=== PATIENT | female | born 1945 | race Caucasian/White ===

== ENCOUNTER 2016-07-06 10:34 | Emergency (ER) | payer MEDICARE ==
[2016-07-06 11:16] LABS: BILIRUBIN NEGATIVE (NEGATIVE); BLOOD NEGATIVE Ery/uL (NEGATIVE); CLARITY CLEAR (CLEAR); COLOR YELLOW (YELLOW); GLUCOSE (U) NORMAL (NORMAL); KETONE (U) NEGATIVE (NEGATIVE); LEUKOCYTES NEGATIVE Leu/uL (NEGATIVE); NITRITE NEGATIVE (NEGATIVE); PROTEIN NEGATIVE (NEGATIVE); UROBILINOGEN 0.2 mg/dL (0.2-1.0); pH 5.5 (5.0-9.0)
[2016-07-06 11:48] LABS: BASOPHIL 0.7 % (0-2); EOSINOPHIL 0.7 % (0-7); HCT 35.2 % (37.0-47.0); HGB 11.5 g/dl (12.5-16.0); LYMPHOCYTE 20.8 % (15-48); MCH 32.2 pg (25.0-31.0); MCHC 32.7 g/dL (32.0-36.0); MCV 98.6 fL (78.0-100.0); MONOCYTE 4.3 % (0-12); MPV 11.3 fL (6.0-9.5); NEUTROPHIL 73.5 % (41-80); PLT 155 K/uL (150-400); RBC 3.57 M/uL (4.20-5.40); RDW 11.3 % (11.5-14.0); WBC 4.4 K/uL (4.0-10.5)
[2016-07-06 12:08] LABS: BILIRUBIN - TOTAL 0.5 mg/dL (0.1-1.0); CREATININE 1.2 mg/dL (0.5-1.0); GLOBULIN (CALCULATION) 3.1 g/dL (2.2-4.2); POTASSIUM 4.6 mmol/L (3.5-5.1); TOTAL PROTEIN 7.1 g/dL (6.4-8.3)
== END 2016-07-06 14:01 | disposition home or self-care (01) ==
LOC: FER 10:34
PROVIDERS: Emergency Medicine
DX: M54.5 Low back pain (principal); I10 Essential (primary) hypertension; Z90.49 Acquired absence of other specified parts of digestive tract; Z90.89 Acquired absence of other organs; Z88.8 Allergy status to other drugs, medicaments and biological substances
CPT/HCPCS: 36415; 74000; 80053; 81003; 82150; 83690; 85025; 85651; 87088; 99284

== ENCOUNTER 2016-07-07 12:58 | Inpatient (IN) | payer MEDICARE ==
[2016-07-07 14:13] LABS: BASOPHIL 0.5 % (0-2); EOSINOPHIL 0 % (0-7); HCT 36.8 % (37.0-47.0); HGB 12.2 g/dl (12.5-16.0); LYMPHOCYTE 15.9 % (15-48); MCH 32.4 pg (25.0-31.0); MCHC 33.2 g/dL (32.0-36.0); MCV 97.6 fL (78.0-100.0); MONOCYTE 3.6 % (0-12); MPV 11.5 fL (6.0-9.5); PLT 191 K/uL (150-400); RBC 3.77 M/uL (4.20-5.40); RDW 11.3 % (11.5-14.0); WBC 6.1 K/uL (4.0-10.5)
[2016-07-07 14:23] LABS: POTASSIUM 4.1 mmol/L (3.5-5.1)
[2016-07-07 23:54] LABS: INR 1.13 (0.9-1.2); PROTHROMBIN TIME 14.1 SECONDS (11.7-14.0)
[2016-07-08 00:06] LABS: CKMB 2.06 ng/mL (0.97-4.94); TROPONIN T < 0.010 ng/mL
[2016-07-08 00:16] LABS: TSH (THYROID STIM HORMONE) 1.06 uIU/mL (0.270-4.200)
[2016-07-08 00:22] LABS: FOLIC ACID (SERUM) > 20.0 ng/mL (5.6-45.8)
[2016-07-08 06:04] LABS: BASOPHIL 0.5 % (0-2); EOSINOPHIL 0.5 % (0-7); HCT 30.5 % (37.0-47.0); HGB 9.9 g/dl (12.5-16.0); LYMPHOCYTE 24.7 % (15-48); MCH 32.1 pg (25.0-31.0); MCHC 32.5 g/dL (32.0-36.0); MONOCYTE 9.7 % (0-12); MPV 11.6 fL (6.0-9.5); NEUTROPHIL 64.6 % (41-80); PLT 166 K/uL (150-400); RBC 3.08 M/uL (4.20-5.40); RDW 11.3 % (11.5-14.0); WBC 5.5 K/uL (4.0-10.5)
[2016-07-08 06:22] LABS: CREATININE 1.1 mg/dL (0.5-1.0); POTASSIUM 4.1 mmol/L (3.5-5.1); TROPONIN T < 0.010 ng/mL
[2016-07-09 05:11] LABS: ALBUMIN 3.7 g/dL (3.4-4.8); BILIRUBIN - TOTAL 0.5 mg/dL (0.1-1.0); CREATININE 1.4 mg/dL (0.5-1.0); GLOBULIN (CALCULATION) 2.6 g/dL (2.2-4.2); POTASSIUM 4.2 mmol/L (3.5-5.1); TOTAL PROTEIN 6.3 g/dL (6.4-8.3)
[2016-07-09 08:11] LABS: BASOPHIL NO PRINT 1.1 % (0-2); EOSINOPHIL NO PRINT 2.1 % (0-7); HCT 32.5 % (37.0-47.0); HGB 10.2 g/dL (12.5-16.0); LYMPHOCYTE NO PRINT 32.8 % (15-48); MCH NO PRINT 31.3 pg (25.0-31.0); MCHC NO PRINT 31.4 g/dL (32.0-36.0); MCV NO PRINT 99.7 fL (78.0-100.0); MONOCYTE NO PRINT 12.3 % (0-12); NEUTROPHIL NO PRINT 51.7 % (41-80); PLT NO PRINT 164 K/uL (150-400); RBC NO PRINT 3.26 M/uL (4.20-5.40); RDW NO PRINT 11.5 % (11.5-14.0); WBC NO PRINT 4.7 K/uL (4.0-10.5)
[2016-07-09] MEDS ORDERED: COZAAR100 MG PO (10:37)
[2016-07-09] MEDS ORDERED: BACLOFEN 10MG T10 MG PO (10:38)
[2016-07-09] MEDS ORDERED: TURMERIC500 MG PO (10:39)
[2016-07-09] MEDS ORDERED: GLUCOSAMINE1000 MG PO (10:39)
[2016-07-09] MEDS ORDERED: NORCO 5-325 TA1 EACH PO (10:40)
[2016-07-09] MEDS ORDERED: NORVASC5 MG PO (10:40)
[2016-07-09] MEDS ORDERED: LASIX20 MG PO (10:41)
[2016-07-09] MEDS ORDERED: LIDOCAINE 5% P1 EACH TOP (10:41)
== END 2016-07-09 11:30 | disposition home or self-care (01) | DRG 291 ==
LOC: FER 12:58 → FICU 19:15
PROVIDERS: Internal Medicine; Internal Medicine Cardiovascular Disease; ADMIT Internal Medicine
DX: I13.0 Hypertensive heart and chronic kidney disease with heart failure and stage 1 through stage 4 chronic kidney disease, or unspecified chronic kidney disease (principal); J96.01 Acute respiratory failure with hypoxia; Z68.42 Body mass index [BMI] 45.0-49.9, adult; I27.2 Other secondary pulmonary hypertension; E66.01 Morbid (severe) obesity due to excess calories; J81.0 Acute pulmonary edema; I50.31 Acute diastolic (congestive) heart failure; I50.30 Unspecified diastolic (congestive) heart failure; I11.0 Hypertensive heart disease with heart failure; M51.36 Other intervertebral disc degeneration, lumbar region; I34.0 Nonrheumatic mitral (valve) insufficiency; D64.9 Anemia, unspecified; Z86.14 Personal history of Methicillin resistant Staphylococcus aureus infection; N18.9 Chronic kidney disease, unspecified
CPT/HCPCS: 36415; 36600; 71010; 72100; 74000; 78579; 78580; 80048; 80053; 81003; 82150; 82550; 82553; 82607; 82728; 82746; 82803; 83540; 83690; 83880; 84443; 84484; 85014; 85018; 85025; 85379; 85610; 85651; 87088; 93005; 93880; 94010; 99284; A9539; J1885; J1940; J2270; J2405; Q9967

== ENCOUNTER 2020-08-29 14:50 | Day surgery (SDCO) | payer MEDICARE ==
[~2020-08-29] VITALS: Ht 162.6 cm; Wt 114.5 kg
[~2020-08-29 14:50] MED LIST: BACLOFEN 10MG T10 MG PO; COZAAR100 MG PO; GLUCOSAMINE1000 MG PO; LASIX20 MG PO; LIDOCAINE 5% P1 EACH TOP; NORCO 5-325 TA1 EACH PO; NORVASC5 MG PO; TURMERIC500 MG PO
[2020-08-29 17:58] LABS: BASOPHIL 0.2 % (0-2); EOSINOPHIL 0.1 % (0-7); HCT 39.7 % (37.0-47.0); HGB 13.6 g/dl (12.5-16.0); MCHC 34.3 g/dL (32.0-36.0); MCV 96.4 fL (78.0-100.0); MONOCYTE 6.5 % (0-12); MPV 10.2 fL (6.0-9.5); NEUTROPHIL 81.7 % (41-80); NRBC 0; PLT 209 K/uL (150-400); RBC 4.12 M/uL (4.20-5.40); RDW 12.2 % (11.5-14.0); WBC 11.7 K/uL (4.0-10.5)
[2020-08-29 18:10] LABS: ALBUMIN 3.4 g/dL (3.4-5.0); BILIRUBIN - TOTAL 1.3 mg/dL (0.2-1.0); BUN/CREAT RATIO (CALC) 18.6 RATIO; CREATININE 1.88 mg/dL (0.51-0.95); GLOBULIN (CALCULATION) 3.6 g/dL; POTASSIUM 4.2 mmol/L (3.5-5.1)
[2020-08-29 19:04] LABS: INR 1.44 (0.9-1.2); PROTHROMBIN TIME 16.8 SECONDS (11.8-13.4); PTT 28.9 SECONDS (24.4-34.7)
[2020-08-30 00:06] LABS: CKMB 2.4 ng/mL (0.0-3.6)
[2020-08-30] MEDS ORDERED: PRAVACHOL20 MG PO (01:02)
[2020-08-30] MEDS ORDERED: ELIQUIS5 MG PO (01:03)
[2020-08-30] MEDS ORDERED: CO Q-10100 MG PO (01:03)
[2020-08-30] MEDS ORDERED: CARDIZEM CD120 MG PO (01:04)
[2020-08-30] MEDS ORDERED: TOPROL XL 50 MG50 MG PO (01:05)
[2020-08-30] MEDS ORDERED: LASIX20 MG PO (01:05)
[2020-08-30] MEDS ORDERED: VITAMIN D (01:07)
[2020-08-30] MEDS ORDERED: B 12 IM (01:08)
[2020-08-30 04:58] LABS: BILIRUBIN 1+ mg/dL (NEGATIVE); BLOOD NEGATIVE Ery/uL (NEGATIVE); CLARITY CLEAR (CLEAR); COLOR YELLOW (YELLOW); GLUCOSE (U) NORMAL (NORMAL); LEUKOCYTES NEGATIVE Leu/uL (NEGATIVE); NITRITE NEGATIVE (NEGATIVE); PROTEIN TRACE (LOW) mg/dL (NEGATIVE); SPECIFIC GRAVITY 1.025 (1.001-1.030); UROBILINOGEN 0.2 mg/dL (0.2-1.0); pH 5.5 (5.0-9.0)
[2020-08-30 06:40] LABS: BASOPHIL 0.4 % (0-2); EOSINOPHIL 0.3 % (0-7); HCT 34.9 % (37.0-47.0); HGB 11.9 g/dl (12.5-16.0); LYMPHOCYTE 16.6 % (15-48); MCH 33.1 pg (25.0-31.0); MCHC 34.1 g/dL (32.0-36.0); MCV 96.9 fL (78.0-100.0); MONOCYTE 8.7 % (0-12); MPV 10.5 fL (6.0-9.5); NEUTROPHIL 73.7 % (41-80); NRBC 0; PLT 187 K/uL (150-400); RDW 12.1 % (11.5-14.0); WBC 7.3 K/uL (4.0-10.5)
[2020-08-30 06:57] LABS: ALBUMIN 2.9 g/dL (3.4-5.0); BILIRUBIN - TOTAL 1.2 mg/dL (0.2-1.0); BUN/CREAT RATIO (CALC) 20.9 RATIO; CREATININE 1.72 mg/dL (0.51-0.95); GLOBULIN (CALCULATION) 2.6 g/dL; POTASSIUM 4.3 mmol/L (3.5-5.1); TOTAL PROTEIN 5.5 g/dL (6.4-8.2)
[2020-08-30 07:13] LABS: CKMB 4.2 ng/mL (0.0-3.6)
[2020-08-30 11:50] LABS: URINE CREATININE 173.12 mg/dL (29.00-226.00); URINE TOTAL PROTEIN-RANDOM 43.5 mg/dL (<11.9)
--- NOTE | 2020-08-30 17:58 | NUR ---
08/30/20 Ms. Branham lives at home with his spouse. She requested a rolling walker. [employer] has delivered the walker to the patient room.
[2020-08-31 04:04] LABS: BASOPHIL 0.4 % (0-2); EOSINOPHIL 0.7 % (0-7); HCT 30.7 % (37.0-47.0); HGB 10.3 g/dl (12.5-16.0); LYMPHOCYTE 23.2 % (15-48); MCH 32.4 pg (25.0-31.0); MCHC 33.6 g/dL (32.0-36.0); MCV 96.5 fL (78.0-100.0); MONOCYTE 8.9 % (0-12); MPV 10.4 fL (6.0-9.5); NEUTROPHIL 66.4 % (41-80); NRBC 0; PLT 160 K/uL (150-400); RBC 3.18 M/uL (4.20-5.40); RDW 12.1 % (11.5-14.0); WBC 5.5 K/uL (4.0-10.5)
[2020-08-31 04:24] LABS: BUN/CREAT RATIO (CALC) 20.1 RATIO; CREATININE 1.74 mg/dL (0.51-0.95); POTASSIUM 3.5 mmol/L (3.5-5.1)
[2020-08-31] MEDS ORDERED: LASIX40 MG PO (11:07)
--- NOTE | 2020-08-31 14:04 | NUR ---
DSG CHANGE DONE TO RIGHT WRIST AND HAND AREA AND TO LEFT LEG.
== END 2020-08-31 14:20 | disposition home or self-care (01) ==
LOC: FER 14:50 → FMS 20:49
PROVIDERS: Emergency Medicine; Nurse Practitioner; ADMIT Internal Medicine
DX: S81.812A Laceration without foreign body, left lower leg, initial encounter (principal); Z79.01 Long term (current) use of anticoagulants; I27.20 Pulmonary hypertension, unspecified; W01.0XXA Fall on same level from slipping, tripping and stumbling without subsequent striking against object, initial encounter; Z88.8 Allergy status to other drugs, medicaments and biological substances; I13.10 Hypertensive heart and chronic kidney disease without heart failure, with stage 1 through stage 4 chronic kidney disease, or unspecified chronic kidney disease; I25.10 Atherosclerotic heart disease of native coronary artery without angina pectoris; I48.91 Unspecified atrial fibrillation; Z95.0 Presence of cardiac pacemaker; Z20.822 Contact with and (suspected) exposure to COVID-19; I21.4 Non-ST elevation (NSTEMI) myocardial infarction; I34.0 Nonrheumatic mitral (valve) insufficiency; N18.30 Chronic kidney disease, stage 3 unspecified; I45.10 Unspecified right bundle-branch block; Z90.49 Acquired absence of other specified parts of digestive tract
CPT/HCPCS: 36415; 71045; 73560; 73590; 73610; 80048; 80053; 80061; 81003; 82550; 82553; 82570; 83735; 83880; 84156; 84300; 84484; 85025; 85610; 85730; 87088; 90471; 90715; 93005; 97110; 97116; 97161; 97166; 97530; G0378; J1940; J2001; J3420; P9046; U0002

== ENCOUNTER 2020-09-03 22:11 | Emergency (ER) | payer MEDICARE ==
[~2020-09-03 22:11] MED LIST changes: +B 12 IM; +CARDIZEM CD120 MG PO; +CO Q-10100 MG PO; +ELIQUIS5 MG PO; +LASIX40 MG PO; +PRAVACHOL20 MG PO; +TOPROL XL 50 MG50 MG PO; +VITAMIN D
[2020-09-03 23:50] LABS: BASOPHIL 0.5 % (0-2); EOSINOPHIL 1.8 % (0-7); HCT 36.1 % (37.0-47.0); HGB 12.1 g/dl (12.5-16.0); LYMPHOCYTE 16.9 % (15-48); MCHC 33.5 g/dL (32.0-36.0); MCV 98.4 fL (78.0-100.0); MONOCYTE 8.2 % (0-12); MPV 10.4 fL (6.0-9.5); NEUTROPHIL 72.1 % (41-80); NRBC 0; PLT 210 K/uL (150-400); RBC 3.67 M/uL (4.20-5.40); RDW 12.2 % (11.5-14.0); WBC 6.6 K/uL (4.0-10.5)
[2020-09-04] MEDS ORDERED: BACTRIM DS TAB1 EACH PO (00:22)
[2020-09-04] MEDS ORDERED: VIBRAMYCIN100 MG PO (00:22)
== END 2020-09-04 00:45 | disposition home or self-care (01) ==
LOC: FER 22:11
PROVIDERS: Emergency Medicine
DX: S81.812D Laceration without foreign body, left lower leg, subsequent encounter (principal); I11.0 Hypertensive heart disease with heart failure; I50.9 Heart failure, unspecified; W19.XXXD Unspecified fall, subsequent encounter
CPT/HCPCS: 36415; 85025; 99283

== ENCOUNTER 2021-02-09 12:28 | Emergency (ER) | payer MEDICARE ==
[~2021-02-09 12:28] MED LIST changes: +BACTRIM DS TAB1 EACH PO; +VIBRAMYCIN100 MG PO
[2021-02-09 15:48] LABS: BASOPHIL 0.5 % (0-2); EOSINOPHIL 0.4 % (0-7); HCT 41.4 % (37.0-47.0); LYMPHOCYTE 26.5 % (15-48); MCH 32.3 pg (25.0-31.0); MCHC 33.8 g/dL (32.0-36.0); MCV 95.4 fL (78.0-100.0); MONOCYTE 5.7 % (0-12); NEUTROPHIL 66.4 % (41-80); NRBC 0; PLT 214 K/uL (150-400); RBC 4.34 M/uL (4.20-5.40); RDW 12.8 % (11.5-14.0); WBC 8.1 K/uL (4.0-10.5)
[2021-02-09 15:49] LABS: BILIRUBIN NEGATIVE (NEGATIVE); BLOOD NEGATIVE Ery/uL (NEGATIVE); CLARITY CLEAR (CLEAR); COLOR YELLOW (YELLOW); GLUCOSE (U) NORMAL (NORMAL); LEUKOCYTES NEGATIVE Leu/uL (NEGATIVE); NITRITE NEGATIVE (NEGATIVE); PROTEIN NEGATIVE (NEGATIVE); UROBILINOGEN 0.2 mg/dL (0.2-1.0); pH 6.5 (5.0-9.0)
[2021-02-09 16:18] LABS: ALBUMIN 3.8 g/dL (3.4-5.0); BILIRUBIN - TOTAL 0.8 mg/dL (0.2-1.0); CREATININE 1.37 mg/dL (0.51-0.95); GLOBULIN (CALCULATION) 3.5 g/dL; POTASSIUM 3.5 mmol/L (3.5-5.1); TOTAL PROTEIN 7.3 g/dL (6.4-8.2)
[2021-02-09] MEDS ORDERED: LIDOCAINE 5% P1 EACH TOP (21:48)
[2021-02-09] MEDS ORDERED: BENTYL10 MG PO (21:48)
== END 2021-02-09 22:15 | disposition home or self-care (01) ==
LOC: FER 12:28
PROVIDERS: Emergency Medicine
DX: N83.201 Unspecified ovarian cyst, right side (principal); I10 Essential (primary) hypertension; Z91.041 Radiographic dye allergy status
CPT/HCPCS: 36415; 80053; 81003; 83690; 85025

== ENCOUNTER 2021-05-26 11:22 | Emergency (ER) | payer MEDICARE ==
[~2021-05-26 11:22] MED LIST changes: +BENTYL10 MG PO
[2021-05-26] MEDS ORDERED: CEPHALEXIN500 MG PO (13:41)
== END 2021-05-26 13:47 | disposition home or self-care (01) ==
LOC: FER 11:22
DX: M79.662 Pain in left lower leg (principal); I10 Essential (primary) hypertension
CPT/HCPCS: 93971; 99283